=== PATIENT | female | born 1955 | race Caucasian/White ===

== ENCOUNTER 2022-05-07 06:51 | Day surgery (SDC) | payer MEDICARE ==
[2022-05-07] MEDS ORDERED: Dextrose 5%-Lactated Ringers 1,000 ML IV SCH (07:30)
[2022-05-07] MEDS ORDERED: Propofol 200 MG/20 ML SDV ONE (08:53)
[2022-05-07] MEDS ORDERED: Midazolam 1 MG/ML 2 ML SDV ONE (08:53)
[2022-05-07] MEDS ORDERED: fentaNYL 100 MCG/2 ML SDV ONE (08:53)
[2022-05-07] MEDS ORDERED: fentaNYL 50 MCG/ML SDV ONE (08:54)
== END 2022-05-07 11:55 | disposition home or self-care (01) ==
LOC: JP.SDS 06:51
PROVIDERS: ATTEND Surgery
DX: Z12.11 Encounter for screening for malignant neoplasm of colon (principal); D12.4 Benign neoplasm of descending colon; K57.30 Diverticulosis of large intestine without perforation or abscess without bleeding
CPT/HCPCS: 45385; 88305; J2250; J2704; J3010; J7121